=== PATIENT | female | born 1945 | race African-American/Black ===

== ENCOUNTER 2024-02-20 10:49 | Emergency (ER) | payer SELFPAY ==
[~2024-02-20] VITALS: Ht 157.5 cm; Wt 88.0 kg
[2024-02-20 10:57] VITALS: BP 129/60; PULSE 86; RESP 18; TEMP 98; O2SAT 99
[2024-02-20] MEDS ORDERED: ACETAMINOPHEN 325MG TABLET PO ONE (13:30)
[2024-02-20] MEDS ORDERED: TOPUD PO (13:31)
[2024-02-20] MEDS ORDERED: ACETAMINOPHEN 325MG TABLET PO NR (15:15)
== END 2024-02-20 15:23 | disposition home or self-care (01) ==
LOC: ER 10:49
DX: S39.91XA Unspecified injury of abdomen, initial encounter (principal); E78.00 Pure hypercholesterolemia, unspecified; I10 Essential (primary) hypertension; V48.5XXA Car driver injured in noncollision transport accident in traffic accident, initial encounter; Y93.89 Activity, other specified; Y92.89 Other specified places as the place of occurrence of the external cause; Y99.8 Other external cause status
CPT/HCPCS: 74176; 99284